=== PATIENT | male | born 1990 | race African-American/Black ===

== ENCOUNTER 2019-07-12 06:15 | Emergency (ER) | payer SELFPAY ==
--- NOTE | 2019-07-12 06:30 | EDM.PDOC ---
<BenitezKelby - Last Filed: 07/12/19 07:06> ED HPI GENERAL MEDICAL PROBLEM - General Chief Complaint: Lower Extremity Injury/Pain Stated Complaint: RT KNEE HURTS Time Seen by Provider: 07/12/19 06:16 Source of Information: Reports: Patient History Limitations: Reports: No Limitations - History of Present Illness INITIAL COMMENTS - FREE TEXT/NARRATIVE: 28-year-old male with no past medical history presenting with right knee pain. He states that he was playing soccer yesterday when somebody kicked him in his right knee. Since then, he has had persistent pain to the medial joint line of the right knee. However, he has been able to walk and bear weight. Denies any swelling or numbness to the right lower extremity. Denies any pain to the right hip or right ankle or any other injuries. No self treatment prior to arrival, no other complaints. right knee Pain Score (Numeric/FACES): 10 - Related Data Allergies Allergy/AdvReac Type Severity Reaction Status Date / Time No Known Allergies Allergy Verified 07/12/19 06:31 Home Meds: Home Meds Acetaminophen [Tylenol Extra Strength] 1,000 mg PO Q6HR PRN #60 tablet 07/12/19 [Rx] Sulindac [Clinoril] 200 mg PO BIDMEALS #60 tab 07/12/19 [Rx] Past Medical History - Past Health History Medical/Surgical History: Denies Medical/Surgical History Social & Family History - Family History Family Medical History: Noncontributory Review of Systems - Review of Systems Musculoskeletal: Reports: Joint Pain (Right knee pain). Denies: Foot Pain, Joint Swelling ED EXAM, GENERAL - Physical Exam Exam: See Below Free Text/Narrative:: Vital signs reviewed. Nursing notes reviewed. Constitutional: Awake, alert, non-distressed. Head: Normocephalic, atraumatic. Cardiovascular: 2+ R DP pulse, capillary refill less than 2 seconds in RLE. Pulmonary: normal work of breathing, no accessory muscle use. Musculoskeletal: No deformities. Mild tenderness to palpation to the medial joint line of the right knee with some very mild swelling. No deformity. No tenderness to the lateral joint line or around the patella. Somewhat limited active range of motion due to pain. No tenderness to palpation of the right fibular head. Integumentary: Appropriate color for ethnicity, warm, dry, no pallor or jaundice , no rash. Neurologic: Alert, answering questions appropriately, normal speech, no facial droop, moving all extremities well. Sensation intact to light touch in the right lower extremity. Psychiatric: Appropriate mood and affect, normal thought process. Course - Vital Signs Text/Narrative:: 28-year-old male with a right knee injury. Patient [hemodynamically stable, afebrile], well-appearing, looks nontoxic. Differential diagnosis includes but is not limited to: Contusion, sprain, strain , fracture, dislocation Declined analgesic pain medications. Neurovascularly intact in the right lower extremity. Will obtain x-rays. These are pending at time of shift change. Signed out in person to Dr. Raygoza.. Last Recorded V/S: Last Vital Signs Temp 97.5 F 07/12/19 06:25 Pulse 84 07/12/19 06:25 Resp 18 07/12/19 06:25 BP 155/106 H 07/12/19 06:25 Pulse Ox 98 07/12/19 06:25 - Orders/Labs/Meds Meds: Medications Discontinued Medications Generic Name Dose Route Start Last Admin Trade Name Freq PRN Reason Stop Dose Admin Acetaminophen 975 mg 07/12/19 07:19 Tylenol PO 07/12/19 07:20 NOW ONE Ibuprofen 600 mg 07/12/19 07:19 Motrin PO 07/12/19 07:20 ONETIME ONE Departure - Departure Disposition: Home, Self-Care 01 Clinical Impression: Knee effusion, right, Knee abrasion, Knee contusion - Discharge Information Prescriptions: Acetaminophen [Tylenol Extra Strength] 1,000 mg PO Q6HR PRN #60 tablet PRN Reason: Pain Sulindac [Clinoril] 200 mg PO BIDMEALS #60 tab Instructions: Contusion, Ompr-by-Iulo, Knee Effusion, Dsqv-lt-Lsss, How to Use Cold Therapy, Viph-no-Ibts Referrals: PCP,None [Primary Care Provider] - Forms: ED Department Discharge Additional Instructions: The following information is given to patients seen in the emergency department who are being discharged to home. This information is to outline your options for follow-up care. We provide all patients seen in our emergency department with a follow-up referral. The need for follow-up, as well as the timing and circumstances, are variable depending upon the specifics of your emergency department visit. If you don't have a primary care physician on staff, we will provide you with a referral. We always advise you to contact your personal physician following an emergency department visit to inform them of the circumstance of the visit and for follow-up with them and/or the need for any referrals to a consulting specialist. The emergency department will also refer you to a specialist when appropriate. This referral assures that you have the opportunity for follow-up care with a specialist. All of these measure are taken in an effort to provide you with optimal care, which includes your follow-up. Under all circumstances we always encourage you to contact your private physician who remains a resource for coordinating your care. When calling for follow-up care, please make the office aware that this follow-up is from your recent emergency room visit. If for any reason you are refused follow-up, please contact the [facility] Emergency Department at and asked to speak to the emergency department charge nurse. Ludmila Ball [facility] - Internal Medicine [address] [place] [id number] [facility] Professional Building [address] [place] [address], [address] [place] [address] Thank you for coming to [facility] emergency department. It was Dr. Oglesby and Dr. Benitez gates to take care of you tonight. You have a knee effusion after suffering a direct striking blow to your knee. There is no clear evidence that you have a ligamentous injury. Sometimes ligamentous injuries are hard to detect initially given the swelling and pain that you are suffering. I recommend that if you are not getting better that you arrange for an MRI as an outpatient. Either of these clinics above can help you with follow -up for this injury. You have a small abrasion on your knee and I recommend you keep this clean with soap and water and apply some antibiotic ointment twice a day. If you develop a fever, worsening pain, or any other concerns please return to the emergency department for further evaluation. Your x-rays are normal. We will start you on Tylenol for pain, and an anti-inflammatory ( Clinoril) for your inflammation. Sepsis Event Note - Focused Exam Vital Signs: Vital Signs Temp Pulse Resp BP Pulse Ox 07/12/19 06:25 97.5 F 84 18 155/106 H 98 Date Exam was Performed: 07/12/19 Time Exam was Performed: 07:06 <Matt Raygoza - Last Filed: 07/12/19 07:37> Review of Systems - Review of Systems Review Of Systems: Unable To Obtain (noted) Reason Not Obtained: noted Course - Re-Assessments/Exams Free Text/Narrative Re-Assessment/Exam: 07/12/19 07:27 I accepted care of this patient at 7 AM in turnover from Dr. Marquis. Briefly this is a 28-year-old male who was playing soccer was kicked in the knee. No twisting injury. Possibly may be hyperextension. X-rays reviewed and final read reviewed. No evidence of fracture. There is evidence of a joint effusion. Palpable joint effusion is present however I am reluctant to drain this as there is abrasion over the top from the injury. Patient reports up-to- date tetanus status. We will start him on anti-inflammatories and pain medication with Tylenol. I have asked him to follow-up with his primary care doctor and obtain an MRI. We will refer him to a primary care doctor as he does not have one in the area. I have also noted his blood pressure slightly elevated Fanny here. This may be secondary to pain. He also states he has not slept all night. Medical decision making: Extremity trauma: Differential diagnosis includes fracture, dislocation, strain , contusion, tendon or ligamentous injury, compartment syndrome, neurovascular injury, muscle rupture. No compartment syndrome. No ligamentous laxity in any plane. Distal neurovascular function is intact. Full range of motion of the knee although with pain. No evidence of dislocation. No clear evidence of ligamentous injury. PROCEDURE: STRAPPING Benefits, alternative, risks discussed, time out taken Pain was controlled before the procedure. The affected area was strapped using medical grade elastic bandage / tape. Neurovascular remained intact afterward. Right knee Diagnostic impression: 1. Right knee contusion 2. Right knee effusion 3. Right knee abrasion NSAIDs, Tylenol for pain, follow-up with primary care doctor for MRI if necessary. Departure - Departure Time of Disposition: 07:31 - Discharge Information *PRESCRIPTION DRUG MONITORING PROGRAM REVIEWED*: Not Applicable *COPY OF PRESCRIPTION DRUG MONITORING REPORT IN PATIENT YUAN: Not Applicable Sepsis Event Note - Focused Exam Date Exam was Performed: 07/12/19 Time Exam was Performed: 07:27
[2019-07-12 06:35] VITALS: BP 155/106; PULSE 84
--- NOTE | 2019-07-12 07:15 | CR ---
Indication: Kicked in knee, pain. Technique: Right knee 3 views. Comparison: None. Findings: No acute fracture or dislocation. The patella is normally aligned. Mild spurring of the tibial spines and patella. Moderate to large knee joint effusion. Soft tissues are unremarkable. Impression: Moderate to large knee joint effusion. No other acute findings. Dictated by Isabella Rivera MD @ Jul 12 2019 7:11AM Signed by Dr. Isabella Rivera @ Jul 12 2019 7:13AM
[2019-07-12] MEDS ORDERED: Ibuprofen 600 MG Tab PO ONE (07:19)
[2019-07-12] MEDS ORDERED: Acetaminophen 325 MG Tab PO ONE (07:19)
== END 2019-07-12 07:55 | disposition home or self-care (01) ==
LOC: MW.ED 06:15
DX: S80.01XA Contusion of right knee, initial encounter (principal); W51.XXXA Accidental striking against or bumped into by another person, initial encounter; Y93.66 Activity, soccer
CPT/HCPCS: 73562; 99283; A9270

== ENCOUNTER 2019-08-06 17:17 | Emergency (ER) | payer BC ==
[2019-08-06 17:32] VITALS: BP 144/91; PULSE 76
--- NOTE | 2019-08-06 17:52 | EDM.PDOC ---
ED HPI GENERAL MEDICAL PROBLEM - General Chief Complaint: Lower Extremity Injury/Pain Stated Complaint: RIGHT KNEE INJURY Time Seen by Provider: 08/06/19 17:20 Source of Information: Reports: Patient History Limitations: Reports: No Limitations - History of Present Illness INITIAL COMMENTS - FREE TEXT/NARRATIVE: HISTORY AND PHYSICAL: History of present illness: Patient is a 28-year-old male who presents to the emergency room with complaints of right knee pain x3 weeks. He states he was seen in the emergency room initially after the injury, was kicked in the knee while playing soccer. He did have an x-ray which showed a moderate to large joint effusion but no bony abnormalities. He was encouraged to follow-up with an MRI. Patient states that the pain has improved although he has discomfort and difficulty with fully bending his knee. He states the pain is approximately a 1/10 and describes it as an aching and "noticable" discomfort. He denies any new injury, trauma or falls. Denies any numbness or tingling of the affected extremity. He is able to bear weight and perform all his ADLs without difficulty. He offers no systemic complaints. Review of systems: As per history of present illness and below otherwise all systems reviewed and negative. Past medical history: As per history of present illness and as reviewed below otherwise noncontributory. Surgical history: As per history of present illness and as reviewed below otherwise noncontributory. Social history: See social history for further information Family history: As per history of present illness and as reviewed below otherwise noncontributory. Physical exam: General: Well developed and well nourished 28-year-old black male. Alert and oriented. Nontoxic-appearing and in no acute distress. HEENT: Atraumatic, normocephalic, pupils equal and reactive bilaterally, negative for conjunctival pallor or scleral icterus, mucous membranes moist, TMs normal bilaterally, throat clear, neck supple, nontender, trachea midline. No drooling or trismus noted. No meningeal signs. No hot potato voice noted. Lungs: Clear to auscultation, breath sounds equal bilaterally, chest nontender. Heart: S1S2, regular rate and rhythm without overt murmur Abdomen: Soft, nondistended, nontender. Skin: Intact, warm, dry. No lesions or rashes noted. Extremities: Atraumatic, moves all extremities per self without difficulty or deficits, pain with palpation of the right medial knee, full range of motion, negative for cords or calf pain. +CMS with strong pedal pulses. Neurovascular unremarkable. Neuro: Awake, alert, oriented. Cranial nerves II through XII unremarkable. Cerebellum unremarkable. Motor and sensory unremarkable throughout. Exam nonfocal. Notes: Patient did not follow-up for his MRI. My physical exam is within normal limits. He has range of motion and there is no soft tissue swelling noted. He does have tenderness with deep palpation of the medial knee. Will repeat the x- ray in case there was a hairline fracture that was missed. X-ray shows no abnormality. We discussed the need for follow-up as we discussed previously as he will likely need an MRI of the medial ligament. Patient states that he has crutches at home. Supportive care measures were reviewed and discussed. Voices understanding and is agreeable to plan of care. Denies any further questions or concerns at this time. Diagnostics: X-ray Therapeutics: None Prescription: Diclofenac Impression: Right knee pain Plan: 1. Rest, ice, elevate the affected extremity. 2. Tylenol and/or Ibuprofen as needed for pain management. 3. Follow up with the Orthopedic provider as we discussed. You will likely need an MRI, this has to be done as an outpatient. 4. Return to the ED as needed and as discussed. Definitive disposition and diagnosis as appropriate pending reevaluation and review of above. right knee Pain Score (Numeric/FACES): 1 - Related Data Allergies Allergy/AdvReac Type Severity Reaction Status Date / Time No Known Allergies Allergy Verified 08/06/19 17:25 Home Meds: Home Meds Acetaminophen [Tylenol Extra Strength] 1,000 mg PO Q6HR PRN #60 tablet 07/12/19 [Rx] Sulindac [Clinoril] 200 mg PO BIDMEALS #60 tab 07/12/19 [Rx] Past Medical History - Past Health History Medical/Surgical History: Denies Medical/Surgical History HEENT History: Reports: None Cardiovascular History: Reports: None Respiratory History: Reports: None Gastrointestinal History: Reports: None Genitourinary History: Reports: None Musculoskeletal History: Reports: None Neurological History: Reports: None Psychiatric History: Reports: None Endocrine/Metabolic History: Reports: None Insulin Pump Model and Ld Teacher: None Hematologic History: Reports: None Immunologic History: Reports: None Oncologic (Cancer) History: Reports: None Dermatologic History: Reports: None - Infectious Disease History Infectious Disease History: Reports: None - Past Surgical History Head Surgeries/Procedures: Reports: None Social & Family History - Family History Family Medical History: Noncontributory - Tobacco Use Smoking Status *Q: Never Smoker - Caffeine Use Caffeine Use: Reports: None - Recreational Drug Use Recreational Drug Use: No Review of Systems - Review of Systems Review Of Systems: Comprehensive ROS is negative, except as noted in HPI. ED EXAM, GENERAL - Physical Exam Exam: See Below (See dictation) Course - Vital Signs Last Recorded V/S: Last Vital Signs Temp 97.3 F 08/06/19 17:22 Pulse 76 08/06/19 17:22 Resp 16 08/06/19 17:22 BP 144/91 H 08/06/19 17:22 Pulse Ox 96 08/06/19 17:22 Departure - Departure Time of Disposition: 18:15 Disposition: Home, Self-Care 01 Clinical Impression: Right knee injury Qualifiers: Encounter type: initial encounter Qualified Code(s): S89.91XA - Unspecified injury of right lower leg, initial encounter - Discharge Information Instructions: Knee Sprain, Adult, [id number] Referrals: PCP,None [Primary Care Provider] - Forms: ED Department Discharge Additional Instructions: The following information is given to patients seen in the emergency department who are being discharged to home. This information is to outline your options for follow-up care. We provide all patients seen in our emergency department with a follow-up referral. The need for follow-up, as well as the timing and circumstances, are variable depending upon the specifics of your emergency department visit. If you don't have a primary care physician on staff, we will provide you with a referral. We always advise you to contact your personal physician following an emergency department visit to inform them of the circumstance of the visit and for follow-up with them and/or the need for any referrals to a consulting specialist. The emergency department will also refer you to a specialist when appropriate. This referral assures that you have the opportunity for follow-up care with a specialist. All of these measure are taken in an effort to provide you with optimal care, which includes your follow-up. Under all circumstances we always encourage you to contact your private physician who remains a resource for coordinating your care. When calling for follow-up care, please make the office aware that this follow-up is from your recent emergency room visit. If for any reason you are refused follow-up, please contact the Emergency Department at and asked to speak to the emergency department charge nurse. [facility] Professional [address], [address] [place] [address] 1. Rest, ice, elevate the affected extremity. 2. Tylenol and/or Ibuprofen as needed for pain management. 3. Follow up with the Orthopedic provider as we discussed. You will likely need an MRI, this has to be done as an outpatient. 4. Return to the ED as needed and as discussed. Sepsis Event Note (ED) - Evaluation Sepsis Screening Result: No Definite Risk - Focused Exam Vital Signs: Vital Signs Temp Pulse Resp BP Pulse Ox 08/06/19 17:22 97.3 F 76 16 144/91 H 96
--- NOTE | 2019-08-06 18:07 | CR ---
Right knee: AP, lateral and sunrise patellar views of the right knee were obtained. Comparison: Prior right knee study of 07/12/19. Medial and lateral joint compartments are maintained in height. No joint effusion is seen. Patellofemoral joint appears within normal limits. Impression: 1. No abnormality is identified on right knee exam. Diagnostic code #1 This report was dictated in MDT
== END 2019-08-06 18:35 | disposition home or self-care (01) ==
LOC: MW.ED 17:17
DX: S89.91XA Unspecified injury of right lower leg, initial encounter (principal); W21.02XA Struck by soccer ball, initial encounter; Y93.66 Activity, soccer
CPT/HCPCS: 73562-26-RT; 73562-RT; 99283-25

== ENCOUNTER 2020-06-08 13:15 | Emergency (ER) | payer BC, OTHER ==
--- NOTE | 2020-06-08 13:28 | EDM.PDOC ---
ED HPI GENERAL MEDICAL PROBLEM - General Chief Complaint: Upper Extremity Injury/Pain Stated Complaint: LT MIDDLE FINGER SWOLLEN Time Seen by Provider: 06/08/20 13:21 - History of Present Illness INITIAL COMMENTS - FREE TEXT/NARRATIVE: 29yoM presents with left middle finger pain s/p hyperextension injury 2 weeks ago. The patient tripped at work and fell forward he tried to grab a railing but only his middle finger caught it leading to hyperextension injury. He thought it was just sprained his he was able to move it but has had gradually worsening discomfort and swelling since that time. No head trauma no other injury no complaints pain is minimal at rest but worsens with range of motion. No radiation or other associated symptoms. - Related Data Allergies Allergy/AdvReac Type Severity Reaction Status Date / Time No Known Allergies Allergy Verified 08/06/19 17:25 Home Meds: Home Meds Acetaminophen [Tylenol Extra Strength] 1,000 mg PO Q6HR PRN #60 tablet 07/12/19 [Rx] Sulindac [Clinoril] 200 mg PO BIDMEALS #60 tab 07/12/19 [Rx] Diclofenac Sodium [Voltaren] 75 mg PO BIDMEALS PRN #30 tab.cr 08/06/19 [Rx] Past Medical History - Past Health History Medical/Surgical History: Denies Medical/Surgical History HEENT History: Reports: None Cardiovascular History: Reports: None Respiratory History: Reports: None Gastrointestinal History: Reports: None Genitourinary History: Reports: None Musculoskeletal History: Reports: None Neurological History: Reports: None Psychiatric History: Reports: None Endocrine/Metabolic History: Reports: None Insulin Pump Model and X Ray Operator: None Hematologic History: Reports: None Immunologic History: Reports: None Oncologic (Cancer) History: Reports: None Dermatologic History: Reports: None - Infectious Disease History Infectious Disease History: Reports: None - Past Surgical History Head Surgeries/Procedures: Reports: None Social & Family History - Family History Family Medical History: No Pertinent Family History - Caffeine Use Caffeine Use: Reports: None Review of Systems - Review of Systems Review Of Systems: See Below Respiratory: Reports: No Symptoms Cardiovascular: Reports: No Symptoms GI/Abdominal: Reports: No Symptoms ED EXAM, GENERAL - Physical Exam Exam: See Below Free Text/Narrative:: General Appearance: No acute distress, appears comfortable HEENT: Normocephalic/atraumatic, sclera anicteric, mucous membranes moist Neck: Normal range of motion Musculoskeletal: 2+ left radial pulse sensation intact in all digits and within the hand no focal tenderness or swelling with the hand itself there is swelling and tenderness at the PIP joint of the middle finger flexion and extension is intact at the DIP as well as the MCP it is present but severely limited at the PIP. No skin wound nailbed appears normal cap refill normal Neurologic: Awake, alert, no obvious deficits, moving all extremities Psychiatric: Appropriate, cooperative ED TRAUMA EXTREMITY PROCEDURES - Splinting Left 3rd Digit Pre-Procedure NV Status: Normal Post-Procedure NV Status: Normal Splint Material: Aluminum-Foam Splint Design: Volar Applied & Form Fitted By: Nurse Provider Post-Splint Application NV Check: NV Status Normal Complications: No Course - Orders/Labs/Meds Orders: Active Orders 24 hr Category Date Time Status Fingers Third Digit Lt F2 [CR] Stat Exams 06/08/20 13:25 Taken Departure - Departure Time of Disposition: 13:54 Disposition: Home, Self-Care 01 Condition: Good Clinical Impression: Finger sprain - Discharge Information *PRESCRIPTION DRUG MONITORING PROGRAM REVIEWED*: Not Applicable *COPY OF PRESCRIPTION DRUG MONITORING REPORT IN PATIENT YUAN: Not Applicable Instructions: Finger Sprain, Adult, [id number] Referrals: PCP,Not In Area [Primary Care Provider] - Forms: ED Department Discharge Additional Instructions: Please wear the splint whenever you are up and around to help keep you from bending too much. This combined with anti-inflammatory such ibuprofen which is available [id number] should help heal. Please follow-up in the occupational health clinic. [facility] [place] [phone] The following information is given to patients seen in the emergency department who are being discharged to home. This information is to outline your options for follow-up care. We provide all patients seen in our emergency department with a follow-up referral. The need for follow-up, as well as the timing and circumstances, are variable depending upon the specifics of your emergency department visit. If you don't have a primary care physician on staff, we will provide you with a referral. We always advise you to contact your personal physician following an emergency department visit to inform them of the circumstance of the visit and for follow-up with them and/or the need for any referrals to a consulting specialist. The emergency department will also refer you to a specialist when appropriate. This referral assures that you have the opportunity for follow-up care with a specialist. All of these measure are taken in an effort to provide you with optimal care, which includes your follow-up. Under all circumstances we always encourage you to contact your private physician who remains a resource for coordinating your care. When calling for follow-up care, please make the office aware that this follow-up is from your recent emergency room visit. If for any reason you are refused follow-up, please contact the [facility] Emergency Department at and asked to speak to the emergency department charge nurse. - My Orders Last 24 Hours: My Active Orders 06/08/20 13:25 Fingers Third Digit Lt F2 [CR] Stat - Assessment/Plan Last 24 Hours: My Active Orders 06/08/20 13:25 Fingers Third Digit Lt F2 [CR] Stat Assessment:: 29-year-old male presenting with severe left no finger sprain versus fracture x- ray pending. No other sign of injury all digits neurovascularly intact. 1355: X-ray without any significant displaced fracture suspect from sprain splint applied for protective and restorative treatment patient will follow up occupational health
--- NOTE | 2020-06-08 14:01 | CR ---
Indication: Middle finger pain Technique: Three views left 3rd finger Findings : Soft tissue swelling. Normal alignment. No acute fractures or acute osseous abnormalities. Dictated by Nancy Fam MD @ 06/08/2020 2:00:[address] Nancy Fam @ Jun 08 2020 2:00PM
[2020-06-08 14:02] VITALS: BP 143/73; PULSE 79
== END 2020-06-08 14:09 | disposition home or self-care (01) ==
LOC: MW.ED 13:15
DX: S63.613A Unspecified sprain of left middle finger, initial encounter (principal); W01.0XXA Fall on same level from slipping, tripping and stumbling without subsequent striking against object, initial encounter; Y99.0 Civilian activity done for income or pay
CPT/HCPCS: 73140-26-F2; 73140-F2; 99282; 99283-25